=== PATIENT | male | born 1985 | race American Indian/Alaskan Native ===

== ENCOUNTER 2018-11-23 08:34 | Outpatient (CLI) | payer OTHER ==
--- NOTE | 2018-11-23 09:39 | Ultrasound Report ---
ULTRASOUND THYROID SCAN History: Left thyroid nodule Comparison: None. Findings: The right thyroid lobe measures 5.2 x 1.1 x 1.9 cm. No cyst or mass. The thyroid isthmus is normal measuring 3 mm in thickness. The left thyroid lobe measures 5.2 x 1.5 x 1.8 cm. A solitary 1.8 x 0.8 x 1.3 cm nodule is noted near the inferior pole of the left thyroid lobe. There is a small cystic area within this nodule measuring 4 mm. No calcifications. Impression: Solitary nodule in the inferior left thyroid lobe. It has an overall benign appearance. Consider surveillance and repeat exam in 6 months.
== END 2018-11-23 08:35 | disposition home or self-care (01) ==
LOC: US 08:34
PROVIDERS: ATTEND Family Medicine
DX: E04.1 Nontoxic single thyroid nodule (principal); Z88.0 Allergy status to penicillin
CPT/HCPCS: 76536